=== PATIENT | female | born 1965 | race Caucasian/White ===

== ENCOUNTER 2016-10-21 09:01 | Emergency (ER) | payer OTHER ==
[2016-10-21 09:08] VITALS: BP 126/85; PULSE 66; TEMP 98.4; BMI 22.2
--- NOTE | 2016-10-21 10:22 | PDOC ---
History of Present Illness - General Chief Complaint: Pain Stated Complaint: LT FOOT INJURY Time Seen by Provider: 10/21/16 10:04 History Source: Patient Exam Limitations: No Limitations - History of Present Illness Initial Comments: 10/21/16 11:41 Chief complaint: Left foot pain Rate of present illness: Patient is a 51-year-old female with history of asthma , hypertension, GERD, COPD, hyperlipidemia, panic attacks, anxiety, Tourette syndrome, PTSD and bilateral knee replacements and left bunionectomy of first metatarsal here today requesting that subluxation of her left fifth metacarpal tarsal be reduced. Patient reports that approximately 2 months ago she had a draw fall on her left dorsal foot patient went to a demo coordinator however demo coordinator did not do any x-ray and on 10/10/2016 she hit the wall with her left foot patient reports having intense pain to her left fifth metatarsal patient went to [facility]. urgent care and for and what was said she had a fracture of her foot and to go to [facility] emergency room. To emergency room there however did not wait to be seen today due to the weight being over 5 hours. Patient then went to see Dr. Fernandez on 10/10/2016 but was told he does not see problems of the feet. Patient then on 10/19/[address] Rosmery Adkins demo coordinator at an x-ray and noted that there was an internal fixation of the first metatarsal head and it it for many of fifth metatarsal concerning for prior trauma or infection with a subluxation. This doctor suggested that she go to [facility] emergency room to see an orthopedist. Dr. Adkins was called and wanted to know why she had come to this emergency room. Patient was questioned and she said she did not have a ride to get to [facility] emergency room. Pt. requesting percocet, according to Dr. Adkins she ordered vicodin for pt. on 10/19/16. 10/21/16 12:53 10/21/16 12:54 Occurred: reports: other (10/10/16 hit left ft ) Severity: Yes: moderate (left foot ) Lower Extremity Pain Location: left: foot (dorsal foot) Method of Injury: Yes: direct blow (to the wall ) Modifying Factors: improves with: None Lower Ext. Injury Location - Specific Injury Location Foot: left foot pain (over 5th MTP jt) Extremity Pain Location - Extremity Pain Location Extremity Pain Locations: left: foot (5th mct jt ) Past History - Past Medical History Allergies/Adverse Reactions: Allergies Allergy/AdvReac Type Severity Reaction Status Date / Time Sulfa (Sulfonamide Allergy Verified 10/21/16 09:07 Antibiotics) Home Medications: Ambulatory Orders Albuterol Sulfate Inhaler - [Ventolin Hfa Inhaler -] 1 - 2 inh PO QID 12/22/15 Alprazolam [Xanax] 0.25 mg PO BID 12/22/15 Amlodipine Besylate 5 mg PO DAILY 12/22/15 Atenolol [Tenormin -] 50 mg PO BID 12/22/15 Clonazepam [Klonopin] 1 mg PO BID 12/22/15 Gabapentin 300 mg PO BID 12/22/15 Haloperidol Lactate [Haldol] 5 mg PO BID 12/22/15 Losartan Potassium 25 mg PO DAILY 12/22/15 Pantoprazole Sodium [Protonix] 40 mg PO DAILY 12/22/15 Simvastatin 10 mg PO HS 12/22/15 Tiotropium [place] [Spiriva] 1 inh PO DAILY 12/22/15 Asthma: Yes COPD: Yes Psychiatric Problems: Yes (panic,anxiety,TErrets mild, PTSD) - Psycho/Social/Smoking Cessation Hx Anxiety: Yes Suicidal Ideation: No Smoking History: Current every day smoker Have you smoked in the past 12 months: Yes Number of Cigarettes Smoked Daily: 6 Information on smoking cessation initiated: Yes 'Breaking Loose' booklet given: 10/21/16 Hx Alcohol Use: No Drug/Substance Use Hx: No Substance Use Type: None Review of Systems - Review of Systems Musculoskeletal: Yes: Joint Pain (Left foot pain over 5th metatarsal jt), Joint Swelling (left 5th metatarsal slight) Integumentary: Yes: Symptoms Reported Neurological: No: Symptoms reported *Physical Exam - Vital Signs Last Vital Signs Temp Pulse Resp BP Pulse Ox 98.4 F 66 18 126/85 99 10/21/16 09:05 10/21/16 09:05 10/21/16 09:05 10/21/16 09:05 10/21/16 09:05 - Physical Exam General Appearance: Yes: Appropriately Dressed Vascular Pulses: Doralis-Pedis (L): 4+ Extremity: positive: Normal Capillary Refill, Tender (left 5th metatarpal ), Swelling (left fifth metatarso ). negative: Normal Inspection (left 1st toe, 2nd toe slants laterally ), Normal Range of Motion (left fifth toe) Integumentary: positive: Erythema (medial left ankle ) Neurologic: positive: Normal Response, Respond to painful stimul (left dorsal foot ), Responsive. negative: Numbness, Sensory Deficit (left foot ) Procedures - Consent Consent obtained: From Patient - Splinting Splint Location: Left: Foot Waldo Bandage: 3" Complications: No Post splint xray: No Medical Decision Making - Medical Decision Making 10/21/16 11:49 Patient is a 51-year-old female with history of hypertension, GERD, COPD, hyperlipidemia, panic attacks, anxiety, Tourette syndrome, PTSD and bilateral knee replacements and left bunionectomy of first metatarsal here today requesting that subluxation of her left fifth metacarpal tarsal be reduced. Patient reports that approximately 2 months ago she had a draw fall on her left dorsal foot patient went to a demo coordinator however demo coordinator did not do any x- ray and on 10/10/2016 she hit the wall with her left foot patient reports having intense pain to her left fifth metatarsal patient went to [facility] urgent care and for and what was said she had a fracture of her foot and to go to [facility] emergency room. To emergency room there however did not wait to be seen today due to the weight being over 5 hours. Patient then went to see Dr. Fernandez on 10/10/2016 but was told he does not see problems of the feet. Patient then on 10/19/[address] Rosmery Adkins demo coordinator at an x-ray and noted that there was an internal fixation of the first metatarsal head and it it for many of fifth metatarsal concerning for prior trauma or infection with a subluxation. This doctor suggested that she go to [facility] emergency room to see an orthopedist. Dr. Adkins was called and wanted to know why she had come to this emergency room. Patient was questioned and she said she did not have a ride to get to [facility] emergency room. Pt. requesting percocet, according to Dr. Adkins she ordered vicodin for pt. on 10/19. left foot chronic subluxation of fifth metatarsal PLAN: X-ray left fifth foot revealed postsurgical changes involving the first metatarsal with parents feel reaction about this shaft of the second metatarsal and chronic subluxation at the fifth MTP joint. The distal end of the fifth metatarsal appears deformed but unchanged from prior exam. This is most likely from prior surgical resection doan. Inferior calcaneal spur noted if symptoms persist further imaging in orthopedic consult may be of help. Impression no significant change since prior study per Dr. Cardona Follow up with demo coordinator dr. Adkins Confidential Drug Utilization Report Search Terms: Lizzette schaffer, 1965 Search Date: 10/21/2016 12:41:15 PM This report was requested by: Frida Hernández | Reference #: [id number] Others' Prescriptions Patient Name: Lizzette Schaffer Date: 1965 Address: [address] [place], [place] [id number] Sex: Female Rx Written Rx Dispensed Drug Quantity Days Supply Prescriber Name 10/07/2016 10/14/2016 alprazolam 2 mg tablet 60 30 Alisson, Cindy () 10/07/2016 10/09/2016 clonazepam 1 mg tablet 60 30 Alisson, Cindy () 10/02/2016 10/02/2016 acetaminophen-cod #3 tablet 90 30 Lan Velasco MD 09/09/2016 09/16/2016 alprazolam 2 mg tablet 60 30 Alisson, Cindy () 09/09/2016 09/09/2016 clonazepam 1 mg tablet 60 30 Alisson, Cindy () Patient Name: Lizzette Schaffer Date: 1965 Address: [address] [place] [address] Sex: Female Rx Written Rx Dispensed Drug Quantity Days Supply Prescriber Name 10/10/2016 10/10/2016 vicodin 5-300 mg tablet 25 6 Manisha Cerna (PLACIDO) 09/04/2016 09/04/2016 acetaminophen-cod #3 tablet 90 30 Lan Velasco MD 10/21/16 12:54 *DC/Admit/Observation/Transfer Diagnosis at time of Disposition: Foot pain, left, Subluxation of metatarsal - Discharge Dispostion Disposition: HOME Condition at time of disposition: Stable - Referrals Referrals: Lan Velasco MD [Primary Care Provider] - - Patient Instructions Additional Instructions: Keep Hard sole shoe on an Waldo wrap to left foot and use Cane for ambulation Follow-up with your demo coordinator this week for further treatment take pain medications as previously prescribed Patient voiced understanding of discharge instructions and all questions were answered
== END 2016-10-21 12:55 | disposition home or self-care (01) ==
LOC: JERFT 09:01
DX: M24.475 Recurrent dislocation, left foot (principal); W22.01XA Walked into wall, initial encounter; Y93.89 Activity, other specified; Y92.89 Other specified places as the place of occurrence of the external cause; J45.909 Unspecified asthma, uncomplicated; J44.9 Chronic obstructive pulmonary disease, unspecified; I10 Essential (primary) hypertension; K21.9 Gastro-esophageal reflux disease without esophagitis; E78.5 Hyperlipidemia, unspecified; F41.9 Anxiety disorder, unspecified; F95.2 Tourette's disorder
CPT/HCPCS: 73630-TC-LT; 99281-25